=== PATIENT | female | born 1940 | race Caucasian/White ===

== ENCOUNTER 2017-02-20 10:20 | Emergency (ER) | payer MEDICARE ==
[2017-02-20] MEDS ORDERED: Rocuronium 10 mg/mL 5 mL Inj ONE (10:21)
--- NOTE | 2017-02-20 10:21 | ED.REPORT ---
HPI-Trauma Multiple Date of Service Feb 20, 2017 ED Provider: Dr. Mcgee Pt is a 76 y/o female w/ a hx of ESRD on dialysis presenting to the ED via EMS due to head injury which occurred prior to arrival. The patient's brother was taking her in her wheelchair down the stairs and apparently missed the last step and hit the back of her head on the ground. EMS was called and on arrival vital signs were normal with pupils 3 mm equal and reactive. On route to the ED , the patient became severely hypertensive at BP 230/100 and her pupils dilated to 6 mm equally and were fixed. Heart rate decreased to 50 bpm. A change in mentation was associated with this change and she became somnolent and intermittently responsive. She apparently uses her wheelchair due to trouble walking since her recent fall last week. She apparently had a ground level fall about 1 week ago causing a right clavicle fracture and right superior pubic ramus fracture. She recently had a lumpectomy performed on her left breast. There is no history in the EMR and there are no family members at bedside therefore personal history, medication list, and medical history other than ESRD and breast CA is unknown. Nursing Notes Nursing Notes Reviewed: Yes General Time Seen by Provider: 10:24 Chief Complaint Head pain/injury Hx Obtained From: EMS Unable to Obtain Hx: Patient condition Arrived By: Ambulance Onset Occurred: Just prior to arrival Symptom Duration: Since onset Progression Since Onset: Gradually worsening Past Medical History Past Medical History Notes: History very limited due to patient condition Past Medical History ESRD on dialysis - Managed at [facility] fall 1 week ago causing right clavicle fracture Breast Cancer s/p lumpectomy Reports: Cancer (breast), Diabetes mellitus, Denies: Coronary artery disease Reports: Renal failure (times a week hemodialysis with a left upper extremity fistula) Past Surgical History Lumpectomy Smoking History Unknown if Ever Smoker Social History None reported Other Social History: Good social support Ambulatory Status Wheelchair Review of Systems Unable to Obtain ROS Patient condition Physical Exam Initial Vital Signs Vital Signs (First) Date Time Temp Pulse Resp B/P Pulse Ox O2 Delivery O2 Flow Rate FiO2 02/20/17 11:45 100 See paper sheet, severe hypertension. Initial VS: Reviewed, Vital signs abnormal ENT: Mucous membranes moist, Conjunctiva normal, No scleral icterus Extremities: Vascular intact, Neuro intact Skin: Warm, Dry, No cyanosis General/Constitutional: Awake, Cooperative Alertness: Positive: Somnolent Head / Eyes: Normocephalic Hematoma over the occiput Pupils 5 mm bilaterally equally and minimally reactive Neck: Atraumatic, Full range of motion, Non-tender, No midline vertebral tend Respiratory / Chest: Atraumatic, Breath sounds NL, Breath sounds = bilat, No respiratory distress, No rhonchi, No wheezing, No retractions Left breast biopsy surgical wound. Healing without signs of infection. Cardiovascular: Heart rate NL, Regular rhythm, Heart sounds NL Abdomen: Atraumatic, Soft, No palpable mass Back: Atraumatic, No midline vertebral tend NEURO: GCS of 14 for eyes closed Moving all extremities Opening eyes to commands Following all commands Upper Extremity / MS: Atraumatic, Inspection NL, Full range of motion, Neurologic intact, Vascular intact Partial dialysis fistula LUE without bruit or thrill. Lower Extremity / Pelvis / MS: No deformity, Neurologic intact, Vascular intact , Pelvis stable Pain with internal and external rotation of the right hip PSYCH: Unable to assess Interpretation & Diagnostics Lab Results Interpretation Result Diagram: 02/20/17 1020 02/20/17 1020 Test 02/20/17 10:20 White Blood Count 15.9th/mm3 (3.8-10.1) Red Blood Count 3.56mil/mm3 (3.90-5.20) Hemoglobin 11.6g/dL (12.0-15.6) Hematocrit 34.0% (35.0-46.0) Mean Corpuscular Volume 95.5fL (81-100) Mean Corpuscular Hemoglobin 32.6pg (27.0-35.0) Mean Corpuscular Hemoglobin Concent 34.1% (32.0-37.0) Red Cell Distribution Width 13.5% (12.3-15.4) Platelet Count 266bil/L (150-400) Neutrophils (%) (Auto) 83.8% (40-74) Lymphocytes (%) (Auto) 9.5% (14-46) Monocytes (%) (Auto) 4.7% (4-12) Eosinophils (%) (Auto) 1.0% (0-5) Basophils (%) (Auto) 0.4% (0-3) Prothrombin Time 10.0sec (8.1-12.5) Prothromb Time International Ratio 0.94ratio Sodium Level 134mEq/L (134-144) Potassium Level 5.2mEq/L (3.5-5.2) Chloride Level 93mEq/L (97-108) Carbon Dioxide Level 18mmol/L (18-29) Blood Urea Nitrogen 91mg/dL (8-27) Creatinine 8.67mg/dL (0.57-1.00) Estimat Glomerular Filtration Rate 6mL/min (>59) Glucose Level 309mg/dL (60-99) Calcium Level 9.4mg/dL (8.5-10.1) Total Bilirubin 0.3mg/dL (0.0-1.2) Aspartate Amino Transf (AST/SGOT) 16U/L (0-50) Alanine Aminotransferase (ALT/SGPT) 14U/L (0-32) Alkaline Phosphatase 121U/L (25-165) Total Protein 7.1g/dL (6.4-8.4) Albumin 3.7g/dL (3.4-5.0) Alcohols < 10mg/dL (0-10) ECG Interpretation ECG Interpretation: Sinus rhythm with a rate of 50 bpm Right bundle branch block Borderline ST depression, lateral leads Time: 10:42 Interpreted by: ED physician Normal ECG Interpretation: No acute ischemic changes X-Ray Chest Interpretation Chest Xray Interpretation: IMPRESSION: 1. Patchy areas of vague increased attenuation within the lungs may represent atelectasis, contusion, or aspiration. Please correlate clinically. 2. Slight deformity of the mid right clavicle shaft may be chronic. If there is clinical concern for an acute right clavicle fracture, please consider dedicated right clavicle imaging. Dictated by: Spencer Wang M.D. on 02/20/2017 at 9:50 View: Portable, 1 view Interpretation / Wet Read by: Interpret - Radiologist Chest Xray Interpretation: IMPRESSION: 1. Endotracheal tube appears to be appropriately positioned. 2. No acute cardiopulmonary process is evident. 3. Apparent right clavicle fracture. Dictated by: Spencer Wang M.D. on 02/20/2017 at 11:10 Approved by: Spencer Wang M.D. on 02/20/2017 at 11:13 View: Portable, 1 view Interpretation / Wet Read by: Interpret - Radiologist X-Ray Interpretation Xray Interpretation: IMPRESSION: 1. Superior right pubic ramus fracture. An inferior right pubic ramus fracture likely also is present. The need for dedicated CT imaging of the pelvis may be determined clinically. 2. Mild to moderate degenerative changes and osteopenia of the bony pelvis. Dictated by: Spencer Wang M.D. on 02/20/2017 at 9:53 Study Performed: One or two views X-Ray Ordered: Pelvis Interpretation / Wet Read by: Interpret - Radiologist CT Head Interpretation IMPRESSION: 1. Moderate-sized acute hemorrhages of the bilateral frontal lobes with additional areas of subarachnoid hemorrhage. 2. Suprasellar subarachnoid versus subdural hematoma. 3. Nondisplaced right occipital fracture extending into the foramen magnum. 4. Extensive chronic small vessel ischemic changes. 5. Nonspecific low attenuation of the anterior left temporal lobe may be related to focal parenchymal edema from contusion. However, underlying infarction cannot be excluded. 6. Left maxillary sinus fluid may be related to sinusitis. Nonvisualized fracture of the face is difficult to exclude. Note: The emergency department was initially contacted at 1134 hours (PST) on 02/20/17; however, Dr. Mcgee was intubating this patient and unavailable. Results were subsequently discussed with Dr. Mcgee at 1213 hours on 02/20/17. Dictated by: Spencer Wang M.D. on 02/20/2017 at 10:29 Approved by: Spencer Wang M.D. on 02/20/2017 at 11:15 Study: Head CT no contrast Interpretation / Wet Read by: Interpret - Radiologist, Discussed w radiologist CT C-Spine Interpretation IMPRESSION: 1. Image quality limited by patient motion artifact. 2. Upper cervical spine fracture cannot be excluded secondary to motion artifact. No fracture identified in the well-visualized portions of the lower cervical/upper thoracic spine. 3. Non-depressed right occipital fracture. 4. Right clavicle fracture. Dictated by: Lisette Morris MD, PhD on 02/20/2017 at 11:47 Approved by: Lisette Morris MD, PhD on 02/20/2017 at 11:55 Study type: CT no contrast Interpretation / Wet Read by: Interpret - Radiologist, Desirae w radiologist Procedures Intubation Intubation Procedure: Preoxygenated at 100% O2 Rocuronium was given with concern for hyperkalemia in a renal failure patient. Time: 11:31 Procedure Performed by: ED physician Consent / Setup / Site Prep: No consent - emergent, Time-out performed, Oxygen administered, Pulse oximeter applied, classroom monitor applied, Hand hygiene observed, Stand sterile technique Patient Position: Sniff position Blade / ET Tube / Route: [place] scope, Route: oral Procedural Sedation/Analgesia: Sedation: Etomidate Neuromuscular Agent: Rocuronium ET Confirmation: Direct visualization, BS equal, End tidal CO2 device, CXR, Rising O2 sat Secured / Marked: ET tube device, Tube marked at lip Complications: None Post-Procedure: Condition improved, Tolerated procedure well, Patient stable Re-Eval/Medical Decision Med Decision/Clinical Course Transfer summary: This woman arrives relatively alert having deteriorated somewhat in route which was initially BLS and then transferred to ALS after a fall downstairs in a wheelchair. She had a fall about a week ago which resulted in right-sided clavicle and pubic ramus fracture. This is the reason she was in a wheelchair. On arrival here GCS was 14 and should be began to deteriorate and developed to brief less than 1 minute seizures which were treated with 2 mg of IV Ativan. She never became more alert and therefore presumptive intubation was accomplished and 1 g of fosphenytoin was admitted to the IV as well. She was hypertensive at 230/60. To my knowledge the patient is taking no takes coagulants. She was due for dialysis today at an [place] dialysis center. A phonetic medication list was obtained by the refrigeration unit repairer over the phone from a [facility] pharmacy in the [place] area. This was given to the airlift nurse. For intubation we used rocuronium as I did not have a potassium result at the time and knowing that she was a renal failure patient it seemed unsafe to use succinylcholine. We gave 8 mg of rocuronium at approximately 11:30. 2 mg of the [place] M were given just prior to departure from our emergency department. Source of Hx: EMS Re-Evaluation/Progress #1: Time of Eval: 10:47 Patient Status: Condition worsened Re-Evaluation/Progress Note: Pt rechecked. Nurse called, reporting 5 seconds of jerking seizure-like activity immediately following a gagging episode. I went immediately to bedside and pt was not seizing, no excessive muscle tone, and would respond to commands like "open eyes." Her mental state at this time was identical to when I examined her previously. Re-Evaluation/Progress #2: Time of Eval: 11:08 Re-Evaluation/Progress Note: ct tech informed me of brain hemorrhage wet read. Will review imaging and plan for airlift transport. Re-Evaluation/Progress #3: Time of Eval: 11:18 Patient Status: Condition worsened Re-Evaluation/Progress Note: Pt rechecked. Mental status is deteriorating with sonorous breathing. For this and because of expected clinical course definitive airway management is instituted. Re-Evaluation/Progress #4: Time of Eval: 11:58 Patient Status: Condition improved Re-Evaluation/Progress Note: My initial interpretation of the CT imaging was with Dr. Man who felt that the CT images were not optimal because of movement artifact but were probably normal. Just prior to transfer, radiology called and changed their interpretation of the CT imaging saying that it was not definitively normal and therefore the c-collar was replaced. Being sent off with airlift. Consultation #1: Call Returned at: 11:16 Fashion Intern: Agrees with eval, Agrees with plan Note: Discussed case with airlift. They agree to transfer. Consultation #2: Call Returned at: 11:27 Fashion Intern: Agrees with eval, Agrees with plan Note: Called Radiology for STAT C-spine read before intubation Consultation #3: Referral / Consult Name: Obinna Man MD Call Returned at: 11:35 Fashion Intern: Agrees with eval, Agrees with plan Note: Discussed further imaging findings with radiologist. Inform me of skull fracture. Consultation #4: Referral / Consult Name: Lisette Morris MD, PhD Call Returned at: 11:51 Fashion Intern: Agrees with eval, Agrees with plan Note: Radiologist called and informed me her C-spine is unable to be cleared and C-spine precautions must be followed. Counseled Regarding: Diagnosis, Lab results, Need for transfer Discharge & Departure Impression: Primary Impression: Intracranial hemorrhage Additional Impressions: Skull fracture Encounter type: initial encounter Skull bone/location: unspecified skull bone Fracture type: closed Qualified Code: S02.91XA - Unspecified fracture of skull, initial encounter for closed fracture Severe hypertension Head injury Encounter type: initial encounter Qualified Code: S09.90XA - Unspecified injury of head, initial encounter ESRD on dialysis Disposition: Transfer, Acute Care Facility Transfer Requested at: 11:41 Receiving Hospital: [facility] - Trauma Attending Transfer Accepted: Yes Transfer Accepted at: 11:41 Transfer Reason: Higher level of care, Trauma Patient Status: Stable for transfer Patient Informed: Unable Discharge Condition All VS Reviewed: Yes Condition: Critical Referrals: [facility] Crit Care Except Billable Proc Time Spent: 75-104 minutes Services Performed: Patient management by me, Time spent at bedside, Reviewing test results, Reviewing imaging, Discussing patient care, Documentation in record, Time with fam/surrogate Scribe Attestation Portions of this note were transcribed by Nathan Hernandez and Jayleen Garcia. I, Dr. Mcgee personally performed the history, physical exam and medical decision-making; I reviewed and confirmed the accuracy of the information in the transcribed note. Signed by: Nathan Hernandez and Nikki Salcedo, 02/20/17 and 11:50. copies to: [facility] Anthony Mcgee MD Feb 20, 2017 10:21 Jayleen Conrad Feb 20, 2017 10:30 NATHAN HERNANDEZ Feb 20, 2017 11:37 NATHAN HERNANDEZ Feb 20, 2017 11:37
[2017-02-20 10:40] LABS: BASOPHILS % (AUTO) 0.4 % (0-3); MONOCYTES % (AUTO) 4.7 % (4-12); Mean Corpuscular Hemoglobin 32.6 pg (27.0-35.0); Mean Corpuscular Volume 95.5 fL (81-100); NEUTROPHILS % (AUTO) 83.8 % (40-74); Platelet Count 266 bil/L (150-400)
--- NOTE | 2017-02-20 10:54 | DRSVH ---
PROCEDURE: X-RAY CHEST ONE VIEW, PORTABLE ([id number]) INDICATIONS: trauma TECHNIQUE: One view of the chest was acquired. COMPARISON: None. FINDINGS: Surgical changes and devices: None. Lungs and pleura: Low lung volumes are present without lobar consolidation, large effusion, or pneumo thorax. There is hazy increased attenuation within the right lung apex and the right infrahilar vinnie on. A similar appearance is noted within the left infrahilar region. Mediastinum: Mediastinal contours appear normal. Heart size is normal. Bones and chest wall: No suspicious bony lesions. No displaced fractures of the ribs are identified . However, evaluation of the ribs is limited. Subtle deformity involving the right clavicle is inci dentally noted along the mid shaft. The bone mineralization throughout the chest is decreased. [employer] ing soft tissues appear unremarkable. IMPRESSION: 1. Patchy areas of vague increased attenuation within the lungs may represent atelectasis, contusion , or aspiration. Please correlate clinically. 2. Slight deformity of the mid right clavicle shaft may be chronic. If there is clinical concern fo r an acute right clavicle fracture, please consider dedicated right clavicle imaging. Dictated by: Spencer Wang M.D. on 02/20/2017 at 9:50 Approved by: Spencer Wang M.D. on 02/20/2017 at 9:52
--- NOTE | 2017-02-20 10:57 | DRSVH ---
PROCEDURE: X-RAY PELVIS, ONE OR TWO VIEWS ([id number]) INDICATIONS: trauma TECHNIQUE: 1 view(s) of the pelvis acquired. COMPARISON: None. FINDINGS: Bones: Evaluation for subtle pelvic fractures is limited on a single frontal radiograph. However, th ere is at least a superior right ramus fracture. No additional fractures are evident. No widening o f the sacroiliac joints or pubic symphysis are evident. The bone mineralization is decreased. There are mild to moderate degenerative changes involving the included lumbosacral spine and bilateral hip s. Soft tissues: Visualized bowel gas pattern is normal. No suspicious soft tissue calcifications. Sc attered vascular calcifications are present. IMPRESSION: 1. Superior right pubic ramus fracture. An inferior right pubic ramus fracture likely also is prese nt. The need for dedicated CT imaging of the pelvis may be determined clinically. 2. Mild to moderate degenerative changes and osteopenia of the bony pelvis. Dictated by: Spencer Wang M.D. on 02/20/2017 at 9:53 Approved by: Spencer Wang M.D. on 02/20/2017 at 9:55
[2017-02-20 11:14] LABS: INR 0.94 ratio
[2017-02-20] MEDS ORDERED: Fosphenytoin Inj 1,000 mgPE in 0.9% Sodium Chloride 50 ML IV ONE ×4 (11:15)
[2017-02-20 11:45] VITALS: O2SAT 100
--- NOTE | 2017-02-20 11:56 | DRSVH ---
PROCEDURE: CT CERVICAL SPINE WITHOUT CONTRAST ([id number]) INDICATIONS: TRAUMA TECHNIQUE: Noncontrast 3 mm thick sections acquired from the skull base to the T4 level. Sagittal and coronal r eformats were then constructed. For radiation dose reduction, the following was used: automated exp osure control, adjustment of mA and/or kV according to patient size. COMPARISON: None. FINDINGS: Image quality: Limited by motion artifact. Bones: Nondepressed fracture involving the aspect of the occipital bone noted. Displaced right clavi ignacia fracture is noted. Cervical spine fracture and dislocation cannot be excluded due to the motion a rtifact. Visualized superior ribs are intact. Multilevel degenerative disc disease and facet arthropa thy are noted. Soft tissues: Prevertebral soft tissues are normal in thickness. No paravertebral hematomas. No ap ical pneumothoraces. Atherosclerotic calcifications noted in the carotid arteries. IMPRESSION: 1. Image quality limited by patient motion artifact. 2. Upper cervical spine fracture cannot be excluded secondary to motion artifact. No fracture identif ied in the well-visualized portions of the lower cervical/upper thoracic spine. 3. Non-depressed right occipital fracture. 4. Right clavicle fracture. Dictated by: Lisette Morris MD, PhD on 02/20/2017 at 11:47 Approved by: Lisette Morris MD, PhD on 02/20/2017 at 11:55
--- NOTE | 2017-02-20 12:14 | DRSVH ---
PROCEDURE: X-RAY CHEST ONE VIEW, PORTABLE ([id number]) INDICATIONS: intubation TECHNIQUE: One view of the chest was acquired. COMPARISON: [facility], CR, XR CHEST 1VW (PORTABLE), 02/20/2017, 10:20. FINDINGS: Surgical changes and devices: Interval placement of an endotracheal tube is identified with the tip p ositioned approximately 4-5 cm above the level of the hugo. Lungs and pleura: No pleural effusions or pneumothorax. Lungs are clear. Mediastinum: Mediastinal contours appear normal. Heart size is normal. Bones and chest wall: No suspicious bony lesions. Fracture of the right clavicle appears to be pres ent. No displaced rib fractures are identified. Overlying soft tissues appear unremarkable. IMPRESSION: 1. Endotracheal tube appears to be appropriately positioned. 2. No acute cardiopulmonary process is evident. 3. Apparent right clavicle fracture. Dictated by: Spencer Wang M.D. on 02/20/2017 at 11:10 Approved by: Spencer Wang M.D. on 02/20/2017 at 11:13
--- NOTE | 2017-02-20 12:16 | DRSVH ---
PROCEDURE: CT BRAIN WITHOUT CONTRAST ([id number]) INDICATIONS: trauma TECHNIQUE: Noncontrast 4.5 mm thick angled axial sections acquired from the foramen magnum to the vertex, with c oronal reformats. COMPARISON: None. FINDINGS: Image quality: Diagnostic. Motion artifact through the base of the skull is noted. Brain: Multiple parenchymal hemorrhages are seen within the brain, best appreciated involving the janee ateral frontal lobes (right greater than left). However, there also is a suprasellar hematoma, proba henna within the subarachnoid space. Additional areas of subarachnoid hemorrhage are seen within the b ilateral frontal lobes. No definite midline shift or significant mass effect is identified. The orb its are grossly unremarkable. Moderate areas of low attenuation within the periventricular white matter of the supratentorial brain are present. There is diffuse decreased signal involving the marcos and white matter of the anterior left temporal lobe without associated hemorrhage identified (image 8, series 2) with loss of the marcos -white matter differentiation. The ventricles and cortical sulci are age-appropriate. Bones: There appears to be a nondisplaced subtle fracture involving the right occipital bone that ext ends into the foramen magnum (image 7, series 3). Otherwise, the calvarium and visualized facial bon es are grossly intact. Smaller fluid level is seen within the left maxillary sinus. Otherwise, the imaged paranasal sinuses are clear. IMPRESSION: 1. Moderate-sized acute hemorrhages of the bilateral frontal lobes with additional areas of subarach noid hemorrhage. 2. Suprasellar subarachnoid versus subdural hematoma. 3. Nondisplaced right occipital fracture extending into the foramen magnum. 4. Extensive chronic small vessel ischemic changes. 5. Nonspecific low attenuation of the anterior left temporal lobe may be related to focal parenchyma l edema from contusion. However, underlying infarction cannot be excluded. 6. Left maxillary sinus fluid may be related to sinusitis. Nonvisualized fracture of the face is di fficult to exclude. Note: The emergency department was initially contacted at 1134 hours (PST) on 02/20/17; however, Dr. Zulma bowling was intubating this patient and unavailable. Results were subsequently discussed with Dr. Diamond ayala at 1213 hours on 02/20/17. Dictated by: Spencer Wang M.D. on 02/20/2017 at 10:29 Approved by: Spencer Wang M.D. on 02/20/2017 at 11:15
== END 2017-02-20 12:03 | disposition short-term general hospital (02) ==
LOC: SED 10:20
DX: S06.360A Traumatic hemorrhage of cerebrum, unspecified, without loss of consciousness, initial encounter (principal); S02.91XA Unspecified fracture of skull, initial encounter for closed fracture; V00.811A Fall from moving wheelchair (powered), initial encounter; W10.8XXA Fall (on) (from) other stairs and steps, initial encounter; Y92.9 Unspecified place or not applicable; Y93.89 Activity, other specified; Y99.8 Other external cause status; I12.0 Hypertensive chronic kidney disease with stage 5 chronic kidney disease or end stage renal disease; N18.6 End stage renal disease; R40.2412 Glasgow coma scale score 13-15, at arrival to emergency department; S42.001D Fracture of unspecified part of right clavicle, subsequent encounter for fracture with routine healing; S32.511D Fracture of superior rim of right pubis, subsequent encounter for fracture with routine healing; W18.30XD Fall on same level, unspecified, subsequent encounter; E11.22 Type 2 diabetes mellitus with diabetic chronic kidney disease; Z99.2 Dependence on renal dialysis; Z85.3 Personal history of malignant neoplasm of breast; Z90.12 Acquired absence of left breast and nipple; Z99.3 Dependence on wheelchair
CPT/HCPCS: 31500; 36415; 70450; 71010; 72125; 72170; 80053; 85025; 85610; 93005; 94002; 94799; 96374; 96375; 99291; 99292; G0390; G0480; J2060; J2250; Q2009